=== PATIENT | female | born 1980 | race Two or more races ===

== ENCOUNTER 2024-11-21 01:24 | Inpatient (IN) | payer OTHER ==
[~2024-11-21] VITALS: Ht 160 cm; Wt 62.6 kg
[~2024-11-21 01:24] MED LIST: [UNRECOGNIZED DRUG - OTHER]
--- NOTE | 2024-11-21 02:08 | NUR ---
SE RECIBE PACIENTE ALERTA Y ORIENTADA X 3 ESFERAS EN [place] LA CUAL INDICA QUE PRESENTA DOLOR ABDOMINAL DESDE EL 11/11. REFIERE QUE VISITO KAREN ANGEL DE EMERGENCIA EL 11/17/24 [place] MICHAEL SINTOMAS MITCHELL EMPEORADO. REFIERE SENTIR NAUSEAS.
[2024-11-21] MEDS ORDERED: ONDANSETRON HCL 2 MG/ML VIAL IV ONE (02:15)
[2024-11-21] MEDS ORDERED: KETOROLAC TROMETHAMINE 30 MG VIAL IV ONE ×2 (02:15→07:30)
[2024-11-21] MEDS ORDERED: 0.9 % SODIUM CHLORIDE 1,000 ML IV SCH (02:15)
[2024-11-21] MEDS ORDERED: KETOROLAC TROMETHAMINE 60 MG VIAL IM ONE ×2 (02:40→07:58)
[2024-11-21] MEDS ORDERED: ONDANSETRON HCL 2 MG/ML VIAL ONE (02:40)
--- NOTE | 2024-11-21 03:38 | NUR ---
SE ORIENTA A PACIENTE SOBRE [place] MEDICO, REFIERE ENTENDER. SE REALIZAN MUESTRAS DE LABORATORIO BAJO MEDIDAS ASEPTICAS. SE ADMINISTRAN MEDICAMENTOS LAUREN ORDEN MEDICA. CT REALIZADO. PENDIENTE RE-EVALUACION MEDICA.
[2024-11-21 03:56] LABS: PH,URINE 5.5 (5.0-8.0); URINE APPEARANCE Cloudy; URINE BILIRRUBIN Negative (NEGATIVE); URINE BLOOD Large; URINE COLOR Yellow; URINE GLUCOSE Negative (NEGATIVE); URINE KETONE Trace (NEGATIVE); URINE LEUKOCYTE Trace; URINE NITRATE Positive; URINE PROTEIN Trace (NEGATIVE)
[2024-11-21 03:59] LABS: URINE EPITHELIAL CELLS 17.8 uL (0.0-38.8); URINE RBC 394.6 uL (0.0-20.8); URINE WBC 75.1 uL (0.0-23.2)
[2024-11-21 04:01] LABS: HEMATOCRIT 36.8 % (36.0-45.00); HEMOGLOBIN 12.6 g/dL (12.0-15.00); MEAN CELL VOLUME 88.2 fL (80.00-100.00); MEAN CORPUSCULAR HEMOGLOBIN 30.3 pg (27.00-32.0); MEAN CORPUSCULAR HGB CONC 34.3 g/dl (32.0-36.0); PLATELET COUNT 233 K/uL (150-450); RED BLOOD COUNT 4.17 M/uL (4.00-6.00); RED CELL DISTRIBUTION WIDTH 13.8 % (11.5-14.5)
[2024-11-21 04:04] LABS: URINE BACTERIA > 9821.5 uL (0.0-1933); URINE CAST 0.44 uL (0.0-1.40)
[2024-11-21 04:16] LABS: ALBUMIN 3.3 gm/dL (3.4-5.0); BILIRUBIN TOTAL 0.38 mg/dL (0.3-1.2); CALCIUM 9.2 mg/dL (8.5-10.1); CREATININE SERUM 0.64 mg/dL (0.55-1.02); GFR 100.81; GLOBULINA 4.3 G/DL (2.4-3.5); POTASSIUM 3.8 mEq/L (3.5-5.1); TOTAL PROTEIN 7.6 gm/dL (6.4-8.2)
[2024-11-21] MEDS ORDERED: CEFOXITIN SODIUM 2,000 MG in 0.9 % SODIUM CHLORIDE 100 ML IV SCH (09:02)
[2024-11-21] MEDS ORDERED: DOXYCYCLINE HYCLATE 100MG IV SCH (09:02)
[2024-11-21] MEDS ORDERED: KETOROLAC TROMETHAMINE 30 MG VIAL IV SCH (09:04)
[2024-11-21] MEDS ORDERED: RINGERS SOLUTION,LACTATED 1,000 ML IV SCH (09:15)
[2024-11-21] MEDS ORDERED: PROMETHAZINE HCL 50 MG/ML AMPUL IV PRN (09:15)
[2024-11-21 09:45] VITALS: BP 128/89
[2024-11-21 10:18] LABS: HEMOGLOBIN 10.9 g/dL (12.0-15.00); MEAN CELL VOLUME 89.5 fL (80.00-100.00); MEAN CORPUSCULAR HEMOGLOBIN 29.6 pg (27.00-32.0); MEAN CORPUSCULAR HGB CONC 33.1 g/dl (32.0-36.0); PLATELET COUNT 182 K/uL (150-450); RED BLOOD COUNT 3.68 M/uL (4.00-6.00); RED CELL DISTRIBUTION WIDTH 13.7 % (11.5-14.5)
[2024-11-21 14:04] VITALS: BP 95/61
[2024-11-21 18:31] VITALS: BP 107/72
[2024-11-21] MEDS ORDERED: FAMOTIDINE/PF 20 MG/2 ML VIAL IV SCH (22:15)
[2024-11-22 01:00] VITALS: BP 108/61
[2024-11-22 07:53] VITALS: BP 112/73
[2024-11-22] MEDS ORDERED: DOXYCYCLINE HYCLATE 100MG IV SCH (09:00)
[2024-11-22 13:08] LABS: HEMATOCRIT 32.4 % (36.0-45.00); HEMOGLOBIN 10.7 g/dL (12.0-15.00); MEAN CORPUSCULAR HEMOGLOBIN 29.7 pg (27.00-32.0); PLATELET COUNT 186 K/uL (150-450); RED CELL DISTRIBUTION WIDTH 13.6 % (11.5-14.5)
[2024-11-22 15:36] VITALS: BP 115/75
[2024-11-23 00:27] VITALS: BP 96/6
[2024-11-23 08:44] VITALS: BP 107/71
[2024-11-23] MEDS ORDERED: KETOROLAC TROMETHAMINE 30 MG VIAL IV PRN (14:00)
[2024-11-23 15:52] VITALS: BP 113/76
[2024-11-23] MEDS ORDERED: DOXYCYCLINE HYCLATE 100 MG CAPSULE PO SCH (21:00)
[2024-11-23] MEDS ORDERED: METRONIDAZOLE/SODIUM CHLORIDE 100 ML IV SCH (21:00)
[2024-11-24 01:25] VITALS: BP 113/72
[2024-11-24] MEDS ORDERED: ACETAMINOPHEN WITH CODEINE 1 UDTAB TABLET PO PRN (01:45)
[2024-11-24 08:04] VITALS: BP 102/67
[2024-11-24 10:00] LABS: HEMATOCRIT 26.5 % (36.0-45.00); HEMOGLOBIN 9.1 g/dL (12.0-15.00); MEAN CELL VOLUME 89.2 fL (80.00-100.00); MEAN CORPUSCULAR HEMOGLOBIN 30.6 pg (27.00-32.0); MEAN CORPUSCULAR HGB CONC 34.3 g/dl (32.0-36.0); PLATELET COUNT 143 K/uL (150-450); RED BLOOD COUNT 2.97 M/uL (4.00-6.00); RED CELL DISTRIBUTION WIDTH 13.6 % (11.5-14.5)
[2024-11-24 11:03] LABS: ALBUMIN 2.3 gm/dL (3.4-5.0); BILIRUBIN TOTAL 0.25 mg/dL (0.3-1.2); CALCIUM 8.2 mg/dL (8.5-10.1); CREATININE SERUM 0.52 mg/dL (0.55-1.02); GFR 128.1; TOTAL PROTEIN 5.3 gm/dL (6.4-8.2)
[2024-11-24 15:30] VITALS: BP 125/84
[2024-11-24] MEDS ORDERED: SOD FERRIC GLUC COMPLX/SUCROSE 125 MG in 0.9 % SODIUM CHLORIDE 100 ML IV SCH (17:00)
[2024-11-25 00:25] VITALS: BP 112/66
[2024-11-25] MEDS ORDERED: PROMETHAZINE HCL 25 MG/ML AMPUL IV PRN (02:30)
[2024-11-25 06:41] LABS: HEMATOCRIT 25.6 % (36.0-45.00); MEAN CELL VOLUME 88.8 fL (80.00-100.00); MEAN CORPUSCULAR HGB CONC 34.5 g/dl (32.0-36.0); PLATELET COUNT 155 K/uL (150-450); RED BLOOD COUNT 2.89 M/uL (4.00-6.00); RED CELL DISTRIBUTION WIDTH 13.4 % (11.5-14.5)
[2024-11-25 07:00] LABS: HEMOGLOBIN 8.8 g/dL (12.0-15.00); MEAN CORPUSCULAR HEMOGLOBIN 30.4 pg (27.00-32.0)
[2024-11-25 08:00] VITALS: BP 115/80
[2024-11-25 16:10] VITALS: BP 107/70
[2024-11-25] MEDS ORDERED: MEPERIDINE HCL/PF 25 MG/ML VIAL IV SCH (19:29)
[2024-11-25] MEDS ORDERED: PROMETHAZINE HCL 25 MG/ML AMPUL IV SCH (19:30)
[2024-11-25] MEDS ORDERED: RINGERS SOLUTION,LACTATED 1,000 ML IV SCH (19:30)
[2024-11-25] MEDS ORDERED: MORPHINE SULFATE 4 MG/ML VIAL IV ONE ×2 (20:05→20:35)
[2024-11-25] MEDS ORDERED: CEFOXITIN SODIUM 2,000 MG VIAL IV ONE (20:11)
[2024-11-25] MEDS ORDERED: METRONIDAZOLE/SODIUM CHLORIDE 500 MG/100 ML PIGGYBACK IV ONE (20:41)
[2024-11-25] MEDS ORDERED: FAMOTIDINE/PF 20 MG/2 ML VIAL ONE (20:42)
[2024-11-25 21:41] VITALS: BP 120/67
[2024-11-25 22:45] VITALS: O2SAT 100
[2024-11-26 01:08] VITALS: BP 102/60
[2024-11-26 02:16] LABS: HEMATOCRIT 26.2 % (36.0-45.00); MEAN CELL VOLUME 88.3 fL (80.00-100.00); PLATELET COUNT 165 K/uL (150-450); RED BLOOD COUNT 2.97 M/uL (4.00-6.00); RED CELL DISTRIBUTION WIDTH 13.5 % (11.5-14.5)
[2024-11-26 02:23] LABS: HEMOGLOBIN 8.9 g/dL (12.0-15.00); MEAN CORPUSCULAR HEMOGLOBIN 29.9 pg (27.00-32.0)
[2024-11-26 06:03] VITALS: BP 121/62
[2024-11-26] MEDS ORDERED: ACETAMINOPHEN WITH CODEINE 1 UDTAB TABLET PO PRN (08:45)
[2024-11-26] MEDS ORDERED: NAPROXEN 500 MG TABLET PO PRN (08:45)
[2024-11-26 08:53] VITALS: BP 136/67
[2024-11-26 16:29] VITALS: BP 113/80
[2024-11-26 20:43] VITALS: BP 121/77
[2024-11-27 01:28] VITALS: BP 120/79
[2024-11-27 06:03] VITALS: BP 134/80
[2024-11-27 08:35] VITALS: BP 116/75
[2024-11-27 16:41] VITALS: BP 119/65
[2024-11-27] MEDS ORDERED: METROnidazole 500 MG TABLET PO SCH (21:00)
[2024-11-27] MEDS ORDERED: SODIUM CL 0.9% 100 ML IV.SOLN IV ONE (23:29)
[2024-11-28 00:30] VITALS: BP 149/83
[2024-11-28 05:14] VITALS: BP 124/73
[2024-11-28 08:34] VITALS: BP 131/76
[2024-11-28] MEDS ORDERED: IRON FUM,PS/FOLIC/BCOMP,C NO.9 1 CAP CAPSULE PO SCH (09:00)
[2024-11-28 16:55] VITALS: BP 128/82
[2024-11-28] MEDS ORDERED: CEFOXITIN SODIUM 2,000 MG in 0.9 % SODIUM CHLORIDE 100 ML IV SCH (18:00)
[2024-11-28] MEDS ORDERED: FAMOtidine 20 MG TABLET PO SCH (21:00)
[2024-11-28 21:03] VITALS: BP 140/74
[2024-11-29 00:46] VITALS: BP 121/73
[2024-11-29 07:47] VITALS: BP 140/85
[2024-11-29 16:40] VITALS: BP 121/58
[2024-11-30 01:00] VITALS: BP 125/76
[2024-11-30 08:10] VITALS: BP 129/71
[2024-11-30 12:30] VITALS: BP 139/76
[2024-11-30 16:36] VITALS: BP 117/73
[2024-12-01 00:23] VITALS: BP 112/63
[2024-12-01 08:07] VITALS: BP 121/69
[2024-12-01] MEDS ORDERED: DOXYCYCLINE HY100 M2 PO (09:09)
[2024-12-01] MEDS ORDERED: FLAGYL375 MG PO (09:09)
== END 2024-12-01 12:06 | disposition home or self-care (01) | DRG 747 ==
LOC: ER 01:26 → OB/GYN 10:37
PROVIDERS: General Practice; Obstetrics & Gynecology; ADMIT Obstetrics & Gynecology; ATTEND Obstetrics & Gynecology
PROC: BW21ZZZ Computerized Tomography (CT Scan) of Abdomen and Pelvis (ICD-10-PCS; 2024-11-21)
PROC: BU4CZZZ Ultrasonography of Uterus and Ovaries (ICD-10-PCS; 2024-11-21)
PROC: BW21ZZZ Computerized Tomography (CT Scan) of Abdomen and Pelvis (ICD-10-PCS; 2024-11-22)
PROC: BU4CZZZ Ultrasonography of Uterus and Ovaries (ICD-10-PCS; 2024-11-24)
PROC: 0DNW4ZZ Release Peritoneum, Percutaneous Endoscopic Approach (ICD-10-PCS; 2024-11-25)
PROC: 0UBF4ZZ Excision of Cul-de-sac, Percutaneous Endoscopic Approach (ICD-10-PCS; principal; 2024-11-25 17:30)
DX: N80.329 Endometriosis of the posterior cul-de-sac, unspecified depth (principal); N73.6 Female pelvic peritoneal adhesions (postinfective); N83.291 Other ovarian cyst, right side; N73.9 Female pelvic inflammatory disease, unspecified; R10.2 Pelvic and perineal pain